=== PATIENT | male | born 1960 | race Caucasian/White ===

== ENCOUNTER 2022-04-11 17:18 | Emergency (ER) | payer OTHER ==
[2022-04-11] MEDS ORDERED: Acetaminophen/HYDROcodone 325-5 MG Tab ONE (18:30)
[2022-04-11] MEDS ORDERED: Silver Sulfadiazine 1% Crm 400 GM Jar TOP ONE (18:32)
== END 2022-04-11 18:40 | disposition home or self-care (01) ==
LOC: LB.ED 17:18
DX: T23.232A Burn of second degree of multiple left fingers (nail), not including thumb, initial encounter (principal); T23.231A Burn of second degree of multiple right fingers (nail), not including thumb, initial encounter; X08.8XXA Exposure to other specified smoke, fire and flames, initial encounter
CPT/HCPCS: 16020; 99282; A9270